=== PATIENT | female | born 1995 | race Caucasian/White ===

== ENCOUNTER 2017-01-26 21:49 | Emergency (ER) | payer MEDICAID ==
[~2017-01-26] VITALS: Ht 170.2 cm; Wt 72.6 kg
[2017-01-27 00:33] VITALS: BP 116/66
== END 2017-01-27 00:33 | disposition home or self-care (01) ==
LOC: ED 21:49
DX: S06.0X9A Concussion with loss of consciousness of unspecified duration, initial encounter (principal); S00.03XA Contusion of scalp, initial encounter; W17.89XA Other fall from one level to another, initial encounter; Y93.89 Activity, other specified; Y92.89 Other specified places as the place of occurrence of the external cause; Y99.8 Other external cause status
CPT/HCPCS: 82962; Q0162